=== PATIENT | male | born 2000 | race Caucasian/White ===

== ENCOUNTER 2018-04-28 02:04 | Emergency (ER) | payer SELFPAY ==
[2018-04-28] MEDS ORDERED: MIDAZOLAM 10 MG/2 ML VIAL IM ONE (02:17)
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
[2018-04-28 06:57] VITALS: BP 132/75
== END 2018-04-28 06:55 ==
DX: F10.921 Alcohol use, unspecified with intoxication delirium (principal); R45.1 Restlessness and agitation
CPT/HCPCS: J2250